=== PATIENT | female | born 1960 | race Caucasian/White ===

== ENCOUNTER 2024-12-20 14:58 | Emergency (ER) | payer OTHER, SELFPAY ==
--- OUTSIDE RECORDS SUMMARY | 2009-01-19 06:15 | XMS_ITS | Continuity of Care Document ---
Author Organization [facility] Address [address] [place] [address] [address] [place] [address] Phone Care Team Providers Care Lead Technician Name Role Phone Scott OD, Keo Unavailable Unavailable Procedures Procedure Date Eye Exam & Treatment Refraction Advance Directives Directive Yes / No Effective Date File Name No Information Encounters Encounter Description Practice Location Reason(s) For Visit Diagnoses Date Provider Providers Copied on Encounter [facility], [address] [place] [address] [address], [place], [place], [id number], [place] tel:[phone] [facility] [place] No Information [phone] Scott OD Keo. [address] [facility] [place] , [address], [place], [address], [place]. tel:[phone] Family History Family Member Type Diagnosis Age At Onset No Information Payers Payer name Insurance type Covered green party ID Authoriza tion(s) Medicaid [facility] [id number] Social History Type Description Quantity Date Captured Comments Sex Female Smoking Status No Information Chief Complaint And Reason For Visit No Information Reason For Referral Reason For Referral No Information History Of Present Illness Encounter Date Complaint History Of Prese nt Illness No Information Functional Status Date Functional Assessmen t No Information Instructions Date Instruction Additional Infor mation No Information Assessments Type Assessment Date No Information Patient Care Teams Name Effective Dates (start - stop) Status Members No Information
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
--- OUTSIDE RECORDS SUMMARY | 2024-12-20 15:10 | XMS_ITS | Clinical Summary ---
Author Organization [facility] Address [address] [place] [address] Care Team Providers Care Corporate Financial Analyst Name Role Phone Christiano Wesley MD Primary Care Provider [phone] Allergies Active Allergy Reactions Criticality Noted Date Comments Atropine Unknown 01/05/2024 Hyoscyamine Unknown 08/15/2024 Ibuprofen Unknown,Swelling High 01/24/2017 Iodinated Contrast Media Hives High 06/05/2017 Given at kidney dye test Iodine Unknown 08/15/2024 Lincomycin Unknown 07/17/2017 Nitrofurantoin Unknown 01/05/2024 Phenobarbital Unknown 01/05/2024 Scopolamine Unknown 01/05/2024 Medications acetaminophen (TYLENOL) 325 mg tablet Take 2 tablets (650 mg total) by mouth every 4 (four) hours as needed Active albuterol HFA (PROVENTIL HFA,VENTOLIN HFA,PROAIR HFA) 90 mcg/actuation inhaler Inhale 2 puffs 9 Active budesonide-formoter oL (SYMBICORT) 160-4.5 mcg/actuation inhaler INHALE 2 PUFFS BY MOUTH TWICE DAILY DIRECTED FOR 30 DAYS 8 Active cholecalciferol (VITAMIN D-3) 25 mcg (1,000 unit) tablet Take 1 tablet (1,000 Units total) by mouth daily Active losartan (COZAAR) 50 mg tablet Take 1 tablet (50 mg total) by mouth daily 8 Active lovastatin (MEVACOR) 40 mg tablet Take 1 tablet (40 mg total) by mouth daily Active omeprazole (PriLOSEC) 20 mg capsule Take by mouth daily Active ondansetron ODT (ZOFRAN-ODT) 4 mg disintegrating tablet 0 Active cyclobenzaprine (FLEXERIL) 10 mg tablet Take 1 tablet (10 mg total) by mouth nightly 8 Active guaiFENesin ER (MUCINEX) 600 mg 12 hr tabletIndications:C OPD exacerbation (HCC) Take 2 tablets (1,200 mg total) by mouth 2 (two) times a day Take 1200mg BID x7 days 28 tablet 5 Active benzonatate (TESSALON) 200 mg capsuleIndications: Lower respiratory infection Take 1 capsule (200 mg total) by mouth 3 (three) times a day as needed for cough 30 capsule 5 Active Active Problems Problem Noted Date Diagnosed Date Abnormal liver function 10/09/2024 Cramps of lower extremity 10/09/2024 Morbid obesity 10/09/2024 CAP (community acquired pneumonia) 05/26/2024 HLD (hyperlipidemia) 05/26/2024 Pyelonephritis 05/26/2024 Sepsis 05/25/2024 Asthma 02/11/2020 COPD exacerbation 02/11/2020 Assessment & Plan (10/09/2024 5:29 PM CDT): Orders: COVID-19 POC ipratropium (ATROVENT) 0.02 % nebulizer solution 0.5 mg albuterol 2.5 mg /3 mL (0.083 %) nebulizer solution 2.5 mg predniSONE (DELTASONE) 20 mg tablet; Take 1 tablet (20 mg) by mouth 2 (two) times a day for 5 days azithromycin (ZITHROMAX) 250 mg tablet; Take 2 tabs (500 mg) by mouth today, than 1 tab (250 mg) daily for 4 days. XR Chest Pa Lateral 2 Views; Future guaiFENesin ER (MUCINEX) 600 mg 12 hr tablet; Take 2 tablets (1,200 mg total) by mouth 2 (two) times a day Take 1200mg BID x7 days Essential hypertension 02/11/2020 Iron deficiency anemia 02/11/2020 PUD (peptic ulcer disease) 02/11/2020 Vitamin D deficiency 02/11/2020 High serum creatinine 01/06/2019 Gastroesophageal reflux disease without esophagi tis 10/17/2017 Mixed anxiety and depressive disorder 10/17/2017 Acute blood loss anemia 08/08/2017 Tachycardia 08/08/2017 Assessment & Plan (10/09/2024 5:29 PM CDT): Orders: ECG 12 lead Renal stone 07/17/2017 Encounters Date Type Department Care Team Description 10/17/2024 1:10 PM CDT - 10/17/2024 11:59 PM CDT Hospital Encounter [facility] [address] [place] [address] COPD exacerbation (HCC) Discharge Disposition: Discharge to home or self care 10/17/2024 Telephone [facility] [address] [place] [address] aMrly Pillai NP 10/09/2024 2:15 PM CDT Office Visit [facility] [place] [address] [place] [address] Marly Pillai NP COPD exacerbation (HCC) (Primary Dx); Lower respiratory infection; Tachycardia from Last 3 Months Social History Tobacco Use Types Packs/Day Years Used Date Smoking Tobacco: Former Cigarettes Passive Smoke Exposure: Never Comments No Sex and Gender Information Value Date Recorded Sex Assigned at Not on file 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 Gender Identity Not on file Sexual Orientation Not on file Obstetrics History Last Filed Vital Signs Vital Sign Reading Time Taken Comments Blood Pressure 148/92 10/09/2024 2:17 PM CDT Pulse 110 10/09/2024 4:42 PM CDT Temperature 37.3 C (99.1 F) 10/09/2024 3:30 PM CDT Respiratory Rate 20 10/09/2024 4:42 PM CDT Oxygen Saturation 98% 10/09/2024 4:42 PM CDT Inhaled Oxygen Concentration - - Weight 96.6 kg (213 lb) 10/09/2024 2:17 PM CDT Height 165.1 cm (5' 5) 10/09/2024 2:17 PM CDT Body Mass Index 35.45 10/09/2024 2:17 PM CDT Plan of Treatment Health Maintenance Due Date Last Done Comments Breast Cancer Screening-Mammogram 1961 Cervical Cancer Screening 1961 Colon Cancer Screening-Colonoscopy 1961 Depression Screening 1961 Hepatitis C Screening 1961 Hepatitis B Screening 08/01/1979 Regular Well Visit/Exam 18-64 08/01/1979 Pneumococcal vaccine <65 (1 of 2 - PCV) 1980 Zoster Vaccine (1 of 2) 08/01/2011 DTaP/Tdap/Td Vaccine (1 - Tdap) 08/24/2024 Influenza Vaccine (#1) 2024 02/14/2017 Procedures Procedure Name Priority Date/Time Associated Diagnosis Comments XR CHEST PA LATERAL 2 VIEWS Schedule MARYJO, Read MARYJO (Appt Today, Awaiting Results) 10/17/2024 1:27 PM CDT COPD exacerbation (HCC) ECG 12-LEAD Routine 10/09/2024 5:27 PM CDT Tachycardia COVID-19 POC Routine 10/09/2024 2:32 PM CDT COPD exacerbation (HCC) from Last 3 Months Results * XR Chest Pa Lateral 2 Views (10/17/2024 1:27 PM CDT) Anatomical Region Laterality Modality Body, Chest N/A Computed Radiogr aphy 10/17/2024 2:03 PM CDT Narrative 10/17/2024 2:09 PM CDT EXAM DESCRIPTION: XR CHEST PA LATERAL 2 VIEWS REASON FOR STUDY: shortness of breath Sinus infection last week, was put on meds Cough with flem COPD ASTHMA HIGH 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 COMPARISON: Comparison is made to prior films from [email or web address] 05/25/2024, 11/03/[address] 05/25/2024. No definite superimposed infiltrate. Pulmonary vascularity appears normal. Hyperinflation of the lungs. There is mild spondylosis of the thoracic spine. FINDINGS: There is a large hiatal hernia. Otherwise, normal cardiomediastinal silhouette. Fat from the hernia extends to the left laterally as was seen on the prior exams and CT of 05/25/2024. No superimposed infiltrate. Pulmonary vascularity appears normal. Dextroconvex curvature thoracic spine with levoconvex curvature of the upper lumbar spine. Mild spondylosis. IMPRESSION: 1. No acute findings or infiltrate. 2. Large hiatal hernia. 3. Hyperinflation of the lungs. 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 COMPARISON: Comparison is made to prior films from [facility] [[email or web address]], 05/25/2024, 11/03/[address] 05/25/2024. No definitesuperimposed infiltrate. Pulmonary vascularity appears normal. Hyperinflation of the lungs. There is mild spondylosis of the thoracic spine. FINDINGS: There is a large hiatal hernia. Otherwise, normal cardiomediastinal silhouette. Fat from the hernia extends to the left laterally as was seenon the prior exams and CT of 05/25/2024. No superimposed infiltrate.Pulmonary vascularity appears normal. Dextroconvex curvature thoracic spine with levoconvex curvature of the upper lumbar spine. Mild spondylosis. IMPRESSION: 1. No acute findings or infiltrate. 2. Large hiatal hernia. 3. Hyperinflation of the lungs. THIS IS AN ELECTRONICALLY VERIFIED FINAL REPORT 10/17/2024 2:09 PM - Electronically signed by Emiliano ANTONIO: PACO Report ID: [id number] Reading Location: [id number] Marly Pillai MANAGER MATERIAL IMG XR PROCEDURES Final Result * (ABNORMAL) ECG 12-LEAD (10/09/2024 5:27 PM CDT) Narrative Marly Pillai NP - 10/09/2024 5:27 PM CDT Marly Pillai NP 10/09/2024 5:29 PM ECG 12 lead Date/Time: 10/09/2024 5:27 PM Performed by: Marly Pillai NP Authorized by: Marly Pillai NP Interpreted by ED physician: Dr. Wayne. Rhythm: sinus tachycardia Rate: tachycardic QRS axis: normal Clinical impression: abnormal ECG Comments: Sinus tachycardia, old anterior infarct, nonspecific T abnormality Rate: 112 Rhythm: Sinus tachycardia Ectopy: None QRS: 84 QT/QTcBaz: 326/[address]: 176 ms P/QRS/ degrees Marly Pillai NP ECG ORDERABLES Final Result * COVID-19 POC (10/09/2024 2:32 PM CDT) Pathologist [facility] COVID-19 Ag POC (BD Veritor) Presumptive Negative Presumptive Negative, Invalid [facility] Nasal 10/09/2024 2:32 PM CDT Marly Pillai NP POINT OF CARE TEST ORDERABLES Final Result Performing Organization Address City/State/[facility] Co de Phone Number [facility] [address] [place] [address], [facility] from Last 3 Months Insurance [facility] Care Teams Corporate Financial Analyst Relationship Specialty Start Date End Date Christiano Wesley MD [address] [place] [address] [address] [place] [address] PCP - General Family Medicine 01/05/24
[2024-12-20 15:12] VITALS: BP 138/68; PULSE 97; RESP 20; TEMP 36.7; O2SAT 99
== END 2024-12-20 15:37 | disposition home or self-care (01) ==
PROVIDERS: Emergency Provider Nurse Practitioner
DX: S16.1XXD Strain of muscle, fascia and tendon at neck level, subsequent encounter (principal); V89.2XXD Person injured in unspecified motor-vehicle accident, traffic, subsequent encounter; J06.9 Acute upper respiratory infection, unspecified; I10 Essential (primary) hypertension; E78.00 Pure hypercholesterolemia, unspecified
CPT/HCPCS: 99203; G0463